=== PATIENT | male | born 1970 | race Caucasian/White ===

== ENCOUNTER 2016-09-25 10:25 | Outpatient (CLI) | payer BC ==
[~2016-09-25 10:25] MED LIST: CEPH500C PO; IBUP-15 PO; OXYC-197 PO; ROSU20TA PO
--- OUTSIDE RECORDS SUMMARY | 2016-09-25 10:43 | XMS REPORT ---
Author Author HELDER MEADE Organization [facility] Address [address] [place], [place] [id number] Care Team Providers Care Fleet Service Clerk Name Role Phone Angelica MEADE PCP Unavailable Allergies and Adverse Reactions Name Reaction Notes Aspirin hives Plan of Treatment Not available. Medications Active Name Start Date Estimated Completion Date SIG Comments Crestor 20 mg oral tablet 08/24/2015 take 1 tablet (20 mg) by oral route once daily Problem List Not available. Vital Signs Date Time BP-Sys(mm[Hg] BP-Patricia(mm[Hg]) HR(bpm) RR(rpm) Temp WT HT HC BMI BSA BMI Percentile O2 Sat(%) 01/19/2016 8:54:00 AM 150 mmHg 90 mmHg 62 bpm 18 rpm 97.4 F 213 lbs 69 in 31.45 kg/m2 2.17 m2 97 % Social History Name Description Comments Tobacco chew use Current some day Alcohol Current some day Uses seatbelts Current every day Exercises regularly Never History of Procedures Date Ordered Description Order Status 01/19/2016 12:00 AM COMPLETE CBC W/AUTO DIFF WBC Returned 01/19/2016 12:00 AM COMPREHEN METABOLIC PANEL Returned 01/19/2016 12:00 AM LIPID PANEL Returned 01/19/2016 12:00 AM ROUTINE VENIPUNCTURE Reviewed Results Summary Data and Description Results 01/19/2016 3:54 PM WBC 4.9 RBC 4.84 HGB 14.70 g/dLHCT 43.50 %MCV 90.0 fLMCH 30.40 pgMCHC 33.80 g/dLRDW CV 12.90 %MPV 9.40 fLPLT 259 %NEUT 60.10 %%LYMP 28.40 %%MONO 9.10 %%EOS 1.40 %%BASO 0.60 %#NEUT 2.92 #LYMP 1.38 #MONO 0.44 #EOS 0.07 #BASO 0.03 GLUCOSE 118.0 mg/dLSODIUM 142.0 mmol/LPOTASSIUM 4.70 mmol/ LCHLORIDE 108.0 mmol/LCO2 25.0 mmol/LBUN 15.0 mg/dLCREATININE 1.30 mg/dLSGOT/ AST 25.0 IU/LSGPT/ALT 46.0 IU/LALK PHOS 90.0 IU/LTOTAL PROTEIN 6.60 g/dLALBUMIN 4.30 g/dLTOTAL BILI 0.70 mg/dLCALCIUM 9.30 mg/dLeGFR 59 TRIGLYCERIDES 360.0 mg/ dLCHOLESTEROL 251.0 mg/dLHDL 30.0 mg/dLLDL (CALC) 149.0 mg/dL History Of Immunizations Not available. History of Past Illness Name Date of Onset Comments High cholesterol Hypercholesterolemia Jan 19 2016 11:11AM Fatigue Jan 19 2016 11:11AM Payers Insurance Name Company Name Plan Name Plan Number Policy Number Policy Group Number Start Date BCBS [facility] [id number] N[facility]A [id number] N/A History of Encounters Visit Date Visit Type Provider 01/19/2016 Office visit HELDER ESCOBAR
== END 2016-09-25 10:57 | disposition home or self-care (01) ==
LOC: SLEEP 10:25
PROVIDERS: ATTEND Internal Medicine Critical Care Medicine
DX: G47.30 Sleep apnea, unspecified (principal); R06.83 Snoring

== ENCOUNTER 2020-06-17 06:33 | Emergency (ER) | payer BC ==
[~2020-06-17] VITALS: Ht 175.2 cm; Wt 97.5 kg
[~2020-06-17 06:33] MED LIST changes: -IBUP-15 PO; +IBUP-16 PO; -OXYC-197 PO; +OXYC1TAB87 PO; -ROSU20TA PO; +ROSU20TA2 PO
[2020-06-17] MEDS ORDERED: BENZONATATE 100 MG (TESSALON) CAPSULE PO STA (06:55)
[2020-06-17] MEDS ORDERED: LACTATED RINGERS 1,000 ML IV ONE (06:55)
[2020-06-17 06:59] LABS: BASOPHILS % (AUTO) 0 % (0-10); EOSINOPHILS % (AUTO) 0 % (0-10); HEMATOCRIT 44 % (40-54); HEMOGLOBIN 15.6 g/dL (13.3-17.7); LYMPHOCYTES # (AUTO) 0.7 10^3/uL (1.0-4.0); LYMPHOCYTES % (AUTO) 9 % (12-44); MEAN CORPUSCULAR HEMOGLOBIN 30 pg (25-34); MEAN CORPUSCULAR HGB CONC 35 g/dL (32-36); MEAN CORPUSCULAR VOLUME 86 fL (80-99); MEAN PLATELET VOLUME 8.8 fL (9.0-12.2); MONOCYTES # (AUTO) 0.4 10^3/uL (0.0-1.0); MONOCYTES % (AUTO) 5 % (0-12); NEUTROPHILS # (AUTO) 6.7 10^3/uL (1.8-7.8); NEUTROPHILS % (AUTO) 85 % (42-75); PLATELET COUNT 194 10^3/uL (130-400); WHITE BLOOD COUNT 7.9 10^3/uL (4.3-11.0)
[2020-06-17] MEDS ORDERED: HYDROcodone/APAP 5 MG/325 MG (LORTAB) TAB PO ONE (07:00)
[2020-06-17] MEDS ORDERED: KETOROLAC 30 MG/ML VIAL IVP ONE (07:00)
--- NOTE | 2020-06-17 07:02 | Diagnostic Imaging Report ---
EXAM: CHEST 1 VIEW, AP/PA ONLY INDICATION: Shortness of air. COVID Positive. COMPARISON: None. FINDINGS: Normal heart size and central pulmonary vascularity. Low lung volumes. No focal pulmonary opacity. Patchy airspace opacity in the right midlung. No pleural effusion or pneumothorax. No acute osseous findings. IMPRESSION: Examination mildly limited by low lung volumes resulting in perihilar atelectasis. There is a subtle patchy airspace opacity in the right midlung which could be related to COVID pneumonitis given the history. Report was faxed to Connor/RN Infection Control by diogo at 7:01AM. Dictated by: Dictated on workstation # [id number]
[2020-06-17 07:08] LABS: ALBUMIN 3.9 GM/DL (3.2-4.5)
[2020-06-17 07:09] LABS: CALCIUM 8.5 MG/DL (8.5-10.1)
[2020-06-17 07:10] LABS: TOTAL PROTEIN 7.2 GM/DL (6.4-8.2)
[2020-06-17 07:12] LABS: BILIRUBIN,TOTAL 0.9 MG/DL (0.1-1.0)
[2020-06-17 07:14] LABS: CREATININE SERUM 1.36 MG/DL (0.60-1.30)
[2020-06-17 07:17] LABS: MAGNESIUM 1.8 MG/DL (1.6-2.4)
[2020-06-17] MEDS ORDERED: CEFD300C3 PO (08:10)
--- NOTE | 2020-06-17 08:10 | ED General ---
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 "IM JUST WEARING OUT" +COVID Nursing Sepsis Screen: Possible Sepsis Risk Source of Information: Patient Exam Limitations: No Limitations History of Present Illness Date Seen by Provider: Jun 17, 2020 Time Seen by Provider: 06:40 Initial Comments This 49-year-old gentleman with known COVID-19 presents to the emergency room with difficulty sleeping, persistent cough, and lower back pain. He cannot get the rest he needs due to these symptoms. Oxygen saturation is in the upper 90s on room air and he is not in any respiratory distress. He completed a round of dexamethasone and azithromycin but has continued to struggle despite that. He is on approximately day 10 of his illness. He is febrile today. He has no appetite and is having trouble eating. He also feels like he may be dry. Allergies and Home Medications Allergies Coded Allergies: No Known Drug Allergies (Unverified , 07/04/15) Home Medications Benzonatate 100 Mg Capsule, 200 MG PO TID PRN for COUGH Prescribed by: JIM SARABIA on 06/17/20 0811 Cefdinir 300 Mg Capsule, 300 MG PO BID Prescribed by: JIM SARABIA on 06/17/20 0810 Hydrocodone/Acetaminophen 1 Each Tablet, 1 EACH PO Q4H PRN for PAIN-BREAKTHROUGH May be used for pain or cough Prescribed by: JIM SARABIA on 06/17/20 0813 Ibuprofen 200 Mg Tablet, 800 MG PO Q8H Prescribed by: NILDA RIVERA on 07/05/15 1235 Oxycodone HCl/Acetaminophen 1 Each Tablet, 2 EACH PO Q4H Prescribed by: NILDA RIVERA on 07/05/15 1234 Rosuvastatin Calcium 20 Mg Tablet, 20 MG PO DAILY, (Reported) Patient Home Medication List Home Medication List Reviewed: Yes Review of Systems Review of Systems Constitutional: see HPI EENTM: no symptoms reported Respiratory: see HPI Cardiovascular: no symptoms reported Genitourinary: no symptoms reported Musculoskeletal: see HPI Skin: no symptoms reported Psychiatric/Neurological: No Symptoms Reported Hematologic/Lymphatic: No Symptoms Reported Immunological/Allergic: no symptoms reported Past Ceypwro-Vdpyus-Zpuhcu Hx Past Med/Social Hx: Reviewed Nursing Past Med/Soc Hx Patient Social History Alcohol Use: Occasionally Uses Recreational Drug Use: No Smoking Status: Never a Smoker Recent Foreign Travel: No Contact w/Someone Who Travel: No Recent Infectious Disease Expo: No Past Medical History Surgeries: Yes Abdominal, Orthopedic Respiratory: No Cardiac: Yes High Cholesterol Neurological: No Reproductive Disorders: No Gastrointestinal: Yes Abdominal Hernia, Diverticulosis Musculoskeletal: No Endocrine: No HEENT: No Cancer: No Psychosocial: No Integumentary: No Family Medical History Arthritis 19 FATHER Hypercholesterolemia 19 FATHER Neoplasm (PATERNAL GRANDMOTHER- BRAIN CA) No Pertinent Family Hx Physical Exam Vital Signs Vital Signs - First Documented 06/17/20 06:42 Temp 38.7 Pulse 90 Resp 25 B/P (MAP) 141/76 (97) Pulse Ox 96 Capillary Refill : Less Than 3 Seconds Height, Weight, BMI Height: 5'9.00" Weight: 213lbs. oz. 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 Norm as Tested Skin: Normal Color, Warm/Dry Progress/Results/Core Measures Suspected Sepsis Recent Fever Within 48 Hours: Yes Infection Criteria Present: Documented Infection New/Unexplained Altered Menta: No Sepsis Screen: Possible Sepsis Risk SIRS Temperature: Pulse: 90 Respiratory Rate: 25 Laboratory Tests 06/17/20 06:50: White Blood Count 7.9 Blood Pressure 141 /76 Mean: 97 Laboratory Tests 06/17/20 06:50: Creatinine 1.36H, Platelet Count 194, Total Bilirubin 0.9 Results/Orders Lab Results Laboratory Tests Test 06/17/20 06:50 Range/Units White Blood Count 7.9 4.3-11.0 10^3/uL Red Blood Count 5.13 4.30-5.52 10^6/uL Hemoglobin 15.6 13.3-17.7 g/dL Hematocrit 44 40-54 % Mean Corpuscular Volume 86 80-99 fL Mean Corpuscular Hemoglobin 30 25-34 pg Mean Corpuscular Hemoglobin Concent 35 32-36 g/dL Red Cell Distribution Width 12.6 10.0-14.5 % Platelet Count 194 130-400 10^3/uL Mean Platelet Volume 8.8 L 9.0-12.2 fL Immature Granulocyte % (Auto) 1 % Neutrophils (%) (Auto) 85 H 42-75 % Lymphocytes (%) (Auto) 9 L 12-44 % Monocytes (%) (Auto) 5 0-12 % Eosinophils (%) (Auto) 0 0-10 % Basophils (%) (Auto) 0 0-10 % Neutrophils # (Auto) 6.7 1.8-7.8 10^3/uL Lymphocytes # (Auto) 0.7 L 1.0-4.0 10^3/uL Monocytes # (Auto) 0.4 0.0-1.0 10^3/uL Eosinophils # (Auto) 0.0 0.0-0.3 10^3/uL Basophils # (Auto) 0.0 0.0-0.1 10^3/uL Immature Granulocyte # (Auto) 0.1 0.0-0.1 10^3/uL Sodium Level 135 135-145 MMOL/L Potassium Level 4.0 3.6-5.0 MMOL/L Chloride Level 100 98-107 MMOL/L Carbon Dioxide Level 24 21-32 MMOL/L Anion Gap 11 5-14 MMOL/L Blood Urea Nitrogen 12 7-18 MG/DL Creatinine 1.36 H 0.60-1.30 MG/DL Estimat Glomerular Filtration Rate 55 BUN/Creatinine Ratio 9 Glucose Level 131 H 70-105 MG/DL Calcium Level 8.5 8.5-10.1 MG/DL Corrected Calcium 8.6 8.5-10.1 MG/DL Magnesium Level 1.8 1.6-2.4 MG/DL Total Bilirubin 0.9 0.1-1.0 MG/DL Aspartate Amino Transf (AST/SGOT) 35 H 5-34 U/L Alanine Aminotransferase (ALT/SGPT) 45 0-55 U/L Alkaline Phosphatase 100 40-136 U/L Lactate Dehydrogenase 363 H 125-220 U/L C-Reactive Protein High Sensitivity 4.83 H 0.00-0.50 MG/DL Total Protein 7.2 6.4-8.2 GM/DL Albumin 3.9 3.2-4.5 GM/DL Procalcitonin 0.07 <0.10 NG/ML My Orders Orders - JIM CARRANZA MD Chest 1 View, Ap/Pa Only (06/17/20 06:42) Cbc With Automated Diff (06/17/20 06:53) Comprehensive Metabolic Panel (06/17/20 06:53) Hs C Reactive Protein (06/17/20 06:53) Magnesium (06/17/20 06:53) Ed Iv/Invasive Line Start (06/17/20 06:53) LDH (06/17/20 06:53) Lactated Ringers (Lr 1000 Ml Iv Solution (06/17/20 06:55) Ketorolac Injection (Toradol Injection) (06/17/20 07:00) Benzonatate Capsule (Tessalon Perles) (06/17/20 06:55) Hydrocodone/Apap 5/325 Tablet (Lortab 5 (06/17/20 07:00) Procalcitonin (Pct) (06/17/20 06:58) Ceftriaxone For Iv Use (Rocephin For I (06/17/20 08:15) Medications Given in ED Current Medications Medications Dose Ordered Sig/Osmel Route Start Time Stop Time Status Last Admin Dose Admin Ceftriaxone Sodium 1000 mg/ Sterile Water 10 ml @ 200 mls/hr ONCE ONCE IV 06/17/20 08:15 06/17/20 08:17 DC 06/17/20 08:26 200 MLS/HR Vital Signs/I&O 06/17/20 08:36 Pulse 75 Resp 16 B/P (MAP) 136/90 Pulse Ox 95 Capillary Refill : Less Than 3 Seconds Blood Pressure Mean: 97 Progress Note : Progress Note patient was hydrated with a liter of LR. Pain was treated with hydrocodone and Toradol. Cough was treated with Tessalon Perles and hydrocodone. Patient felt markedly better after these treatments. Labs were reviewed. Chest x-ray showed infiltrates suggestive of COVID. Because he is on day 10 and not improving, Rocephin was administered as a precaution against possible secondary pneumonia given the appearance of the x-ray. Omnicef was prescribed as a follow-up. See discharge instructions. Diagnostic Imaging Diagonstic Imaging: Xray Plain Films/CT/US/NM/MRI: chest Comments NAME: LEE ORDONEZ [facility] REC#: [id number] PT STATUS: DEP ER : 1970 PHYSICIAN: JIM CARRANZA MD ADMIT DATE: 06/17/20/ER Signed Date of Exam:06/17/20 CHEST 1 VIEW, AP/PA ONLY EXAM: CHEST 1 VIEW, AP/PA ONLY INDICATION: Shortness of air. COVID Positive. COMPARISON: None. FINDINGS: Normal heart size and central pulmonary vascularity. Low lung volumes. No focal pulmonary opacity. Patchy airspace opacity in the right midlung. No pleural effusion or pneumothorax. No acute osseous findings. IMPRESSION: Examination mildly limited by low lung volumes resulting in perihilar atelectasis. There is a subtle patchy airspace opacity in the right midlung which could be related to COVID pneumonitis given the history. Report was faxed to [facility]/RN Infection Control by rafy at 7:01AM. Dictated by: Dictated on workstation # [id number] Dict: 06/17/20655 Trans: 06/17/20835 [id number] [id number] Interpreted by: CRISTO ABEBE MD Electronically signed by: CRISTO ABEBE MD 06/17/20835 Departure Impression Primary Impression: COVID-19 Additional Impressions: Cough Insomnia Qualified Codes: G47.00 - Insomnia, unspecified Back pain Qualified Codes: M54.5 - Low back pain Hypovolemia Disposition: 01 HOME, SELF-CARE Condition: Improved Departure-Patient Inst. Decision time for Depature: 08:05 Referrals: UMAIR ESTRADA MD (PCP/Family) Primary Care Physician Patient Instructions: COVID19 Add. Discharge Instructions: Drink plenty of clear liquids to stay well-hydrated. For pain and fever you may take ibuprofen up to 600 mg every 6 hours as needed. You may add hydrocodone as prescribed for additional pain relief. Be advised that the hydrocodone you are prescribed also contains Tylenol. When you are short of breath change positions frequently, in particular try laying on your stomach. This is called proning and improves lung aeration and shortness of breath and COVID-19 patients. Complete your antibiotics as prescribed. Contact your primary care provider or return to the ER if symptoms are worsening. Hydrocodone should help with your cough. You may add Tessalon Perles as prescribed for additional cough suppression. All discharge instructions reviewed with patient and/or family. Voiced understanding. Scripts Benzonatate (TESSALON PERLES) 100 Mg Capsule 200 MG PO TID PRN for COUGH, #20 CAP Prov: JIM CARRANZA MD 06/17/20 Hydrocodone/Acetaminophen (Hydrocodone-Acetamin 5-325 mg) 1 Each Tablet 1 EACH PO Q4H PRN for PAIN-BREAKTHROUGH, #10 TAB May be used for pain or cough Prov: JIM CARRANZA MD 06/17/20 Cefdinir (Cefdinir) 300 Mg Capsule 300 MG PO BID, #20 CAP Prov: JIM CARRANZA MD 06/17/20 Copy Copies To 1: UMAIR ESTRADA MD, JOSHUA T MD Jun 17, 2020 08:10
[2020-06-17] MEDS ORDERED: ACHD5005 PO (08:11)
[2020-06-17] MEDS ORDERED: BENZ100C18 PO (08:11)
[2020-06-17] MEDS ORDERED: cefTRIAXone FOR IV USE 1,000 MG in WATER (STERILE) FOR INJECTION 10 ML IV ONE (08:15)
[2020-06-17 08:36] VITALS: BP 136/90
== END 2020-06-17 08:35 | disposition home or self-care (01) ==
LOC: EDUNIT# 06:33 → ER 06:35
DX: U07.1 COVID-19 (principal); G47.00 Insomnia, unspecified; E86.1 Hypovolemia; M54.5 Low back pain; E78.00 Pure hypercholesterolemia, unspecified; Z82.61 Family history of arthritis; Z80.8 Family history of malignant neoplasm of other organs or systems
CPT/HCPCS: 36415; 71045; 80053; 83615; 83735; 84145; 85025; 86141